=== PATIENT | female | born 1985 | race Hispanic/Latino ===

== ENCOUNTER 2018-06-30 15:33 | Emergency (ER) | payer BC ==
--- NOTE | 2018-06-30 16:23 | CT ---
HEAD CT WITHOUT CONTRAST: HISTORY: Right facial paresthesia. Migraines. COMPARISON: None. FINDINGS: No parenchymal hemorrhage. No extraaxial hematoma. No midline shift. The basilar cisterns are hooker nt. Brain volume is age appropriate. Cortical schmidt white matter differentiation is preserved. No evidence of hydrocephalus. Adequate aeration of the sinuses and mastoid air cells. The calvarium is intact. IMPRESSION: No acute intracranial process. POS: [facility]
== END 2018-06-30 16:25 | disposition home or self-care (01) ==
LOC: SCSER 15:33
DX: R20.2 Paresthesia of skin (principal); G43.909 Migraine, unspecified, not intractable, without status migrainosus; Z79.899 Other long term (current) drug therapy
CPT/HCPCS: 70450